=== PATIENT | male | born 1945 | race African-American/Black ===

== ENCOUNTER 2018-04-25 23:18 | Observation (INO) ==
[2018-04-26] MEDS ORDERED: ASPIRIN 325 MG TABLET PO STA (00:27)
[2018-04-26 02:05] LABS: Alanine Aminotransferase 22 U/L (16-61); Albumin 4.5 G/DL (3.4-5.0); Alkaline Phosphatase 95 U/L (45-117); Aspartate Amino Transferase 19 U/L (0-37); Bilirubin,Total < 0.39 MG/DL (0.2-1.0); Blood Urea Nitrogen 15 MG/DL (7-18); Calcium 9.1 MG/DL (8.5-10.1); Glucose 111 MG/DL (74-106); Potassium 3.8 MMOL/L (3.5-5.1); Sodium 143 MMOL/L (136-145); Total Protein 8.2 G/DL (6.4-8.3)
[2018-04-26 02:24] LABS: Basophils # 0.1 10*3/uL (0.0-0.2); Eosinophils # 0.4 10*3/uL (0.0-0.87); Eosinophils % 5.5 % (0.00-10.9); Hematocrit 43.2 VOL% (42.0-52.0); Hemoglobin 13.9 GM/DL (14.0-18.0); Immature Granulocytes % 0.4 %; Immature Granulocytes Absolute 0.03 #; Lymphocytes # 2.2 10*3/uL (1.4-4.0); Lymphocytes % 31.3 % (21.2-54.2); Mean Corpuscular HGB Conc 32.2 GM/DL (32-36); Mean Corpuscular Hemoglobin 29 PG (27-34); Mean Platelet Volume 11.1 FL (9.6-12.0); Monocytes # 0.5 10*3/uL (0.11-0.8); Monocytes % 6.8 % (1.7-12.7); Neutrophils # 3.9 10*3/uL (1.4-7.4); Platelet Count 269 T/CUMM (130-400); Red Cell Distribution Width 13.2 % (9.3-17.3); White Blood Count 7.1 T/CUMM (4-12)
[2018-04-26] MEDS ORDERED: POLYETHYLENE GLYCOL POWDER 17 GM PACK PO PRN (05:18)
[2018-04-26] MEDS ORDERED: GLUCAGON 1 MG VIAL IM PRN (05:34)
[2018-04-26] MEDS ORDERED: ONDANSETRON 4 MG/2 ML VIAL IV PRN (05:34)
[2018-04-26] MEDS ORDERED: LACTULOSE 20 GM/30 ML UDCUP PO PRN (05:34)
[2018-04-26] MEDS ORDERED: DEXTROSE 50% 25 GM/50 ML VIAL IV PRN (05:34)
[2018-04-26] MEDS ORDERED: ACETAMINOPHEN 325 MG TABLET PO PRN (05:34)
[2018-04-26 05:48] LABS: PT Patient Result 10.1 SECS; Partial Thromboplastin Time 27.7 SECS (0-40)
[2018-04-26 06:03] LABS: Risk Ratio 2.53; Thyroid Stimulating Hormone 1.48 uIU/ml (0.358-3.74)
[2018-04-26] MEDS ORDERED: ENOXAPARIN 40 MG/0.4 ML SYRINGE SUBCUT SCH (09:00)
[2018-04-26] MEDS: INSULIN LISPRO 100 UNIT/ML SUBCUT SCH ×3 (09:14→16:40)
[2018-04-26 12:41] VITALS: BP 130/71
[2018-04-26 14:20] LABS: Troponin I Only < 0.015 NG/ML (0.00-0.045)
== END 2018-04-26 16:58 | disposition home or self-care (01) ==
LOC: EDBD → EDUNIT# → N.EDINP 23:18 → N.ED 23:18 → SUATTDRO 04-26 05:07 → N.TELEN 04-26 05:32
PROVIDERS: ADMIT Internal Medicine; ATTEND Hospitalist